=== PATIENT | male | born 1950 | race Caucasian/White ===

== ENCOUNTER 2017-12-14 19:23 | Inpatient (IN) | payer MEDICARE ==
[~2017-12-14] VITALS: Ht 182.9 cm; Wt 93.0 kg
[2017-12-14] MEDS ORDERED: SODIUM CHLORIDE FLUSH 10ML SYR IVF ONE (19:30)
[2017-12-14] MEDS ORDERED: OMNIPAQUE 350 MG/ML, 100ML BOTTLE ONE (20:31)
[2017-12-14] MEDS ORDERED: MORPHINE SULFATE 4 MG/ML, 1ML ONE (20:44)
[2017-12-14] MEDS ORDERED: ONDANSETRON ODT 4 MG ONE (20:44)
[2017-12-14] MEDS: MORPHINE SULFATE 4 MG/ML, 1ML IVPush PRN ×2 (20:49→22:13)
[2017-12-14] MEDS ORDERED: FLUO20TA25 PO (20:54)
[2017-12-14] MEDS ORDERED: MEMA1CAP3 PO (20:54)
[2017-12-14] MEDS ORDERED: METO25TA35 PO (20:54)
[2017-12-14] MEDS ORDERED: LISI-167 PO (20:54)
[2017-12-14 20:55] LABS: BASOPHILS # (AUTO) 0.01 x10^3/uL (0-0.1); BASOPHILS % (AUTO) 0 % (0-1); EOSINOPHILS # (AUTO) 0.01 x10^3/uL (0-0.4); EOSINOPHILS % (AUTO) 0 % (1-7); LYMPHOCYTES # (AUTO) 0.73 x10^3/uL (1-3.4); LYMPHOCYTES % (AUTO) 5 % (22-44); MD NO; MEAN CORPUSCULAR HEMOGLOBIN 33.7 pg (27.5-34.5); MEAN CORPUSCULAR HGB CONC 33.5 g/dL (33.2-36.2); MEAN CORPUSCULAR VOLUME 100.4 fL (81-97); MEAN PLATELET VOLUME 7.3 fL (7.4-10.4); MONOCYTES # (AUTO) 0.53 x10^3/uL (0.2-0.8); MONOCYTES % (AUTO) 4 % (2-9); NEUTROPHILS # (AUTO) 12.22 x10^3/uL (1.8-6.8); NEUTROPHILS % (AUTO) 91 % (42-75); PLATELET COUNT 347 x10^3/uL (130-400); RED BLOOD COUNT 4.31 x10^6/uL (4.38-5.82); RED CELL DISTRIBUTION WIDTH 14.4 % (9.4-14.8)
[2017-12-14 21:00] LABS: INTERNATIONAL NORMALIZED RATIO 1.08 (0.93-1.1); PROTHROMBIN TIME 11.2 Seconds (9.6-11.5)
[2017-12-14] MEDS ORDERED: ONDANSETRON ODT 4 MG PO ONE (21:00)
[2017-12-14 21:03] LABS: ALBUMIN 3.4 g/dL (3.4-5.0); ANION GAP 15 mmol/L (5-15); CALCIUM 8.6 mg/dL (8.5-10.1); CHLORIDE 101 mmol/L (98-107); CREATININE 0.96 mg/dL (0.7-1.3)
[2017-12-14] MEDS ORDERED: LISINOPRIL 10 MG TABLET PO ONE (21:30)
[2017-12-14] MEDS ORDERED: LISINOPRIL 10 MG TABLET ONE (21:36)
[2017-12-14] MEDS ORDERED: DOCUSATE 100 MG CAPSULE PO PRN (22:00)
[2017-12-14] MEDS ORDERED: POLYETHYLENE GLYCOL 17 GM PACKET PO PRN (22:00)
[2017-12-14] MEDS ORDERED: ACETAMINOPHEN 325 MG TABLET PO PRN (22:00)
[2017-12-14] MEDS ORDERED: hydrALAzine 20 MG/ML, 1ML IVPush PRN (22:00)
[2017-12-14] MEDS ORDERED: ONDANSETRON ODT 4 MG PO PRN (22:00)
[2017-12-14] MEDS: LISINOPRIL 10 MG TABLET PO SCH (22:30)
[2017-12-14] MEDS: SODIUM CHLORIDE 0.9% 1,000 ML IV SCH (22:42)
[2017-12-14] MEDS: HEPARIN 5,000 UNITS/ML, 1ML SQ SCH (22:42)
[2017-12-15 03:28] VITALS: BP 155/108
[2017-12-15 03:52] LABS: MICROSCOPIC NOT IND
[2017-12-15 03:57] LABS: CULTURE INDICATED? NO
[2017-12-15] MEDS: morphine SULFATE 10 MG/ML, 1ML IVPush PRN ×4 (04:35→23:53)
[2017-12-15 04:38] VITALS: BP 181/107
[2017-12-15 04:54] VITALS: BP 156/86
[2017-12-15] MEDS: HEPARIN 5,000 UNITS/ML, 1ML SQ SCH ×2 (06:00→13:58)
[2017-12-15 07:12] VITALS: BP 138/72
[2017-12-15] MEDS: LISINOPRIL 10 MG TABLET PO SCH ×2 (09:48→21:19)
[2017-12-15] MEDS: METOPROLOL TARTRATE 25 MG TABLET PO SCH (09:48)
[2017-12-15] MEDS: SODIUM CHLORIDE 0.9% 1,000 ML IV SCH ×2 (09:50→23:21)
[2017-12-15] MEDS ORDERED: MIDAZOLAM 1 MG/ML, 2ML ONE (11:40)
[2017-12-15] MEDS ORDERED: PROPOFOL 10 MG/ML, 20ML ONE (11:41)
[2017-12-15] MEDS ORDERED: FENTANYL PF 250 MCG/5ML ONE (11:41)
[2017-12-15] MEDS ORDERED: ROCURONIUM 10MG/ML,5ML ONE (11:42)
[2017-12-15] MEDS ORDERED: WATER-INJECTION,STERILE 10 ML IV ONE (11:42)
[2017-12-15] MEDS ORDERED: CEFAZOLIN 1,000 MG ONE ×2 (11:42)
[2017-12-15] MEDS ORDERED: NEOSTIGMINE 1 MG/ML, 10ML ONE (11:43)
[2017-12-15] MEDS ORDERED: GLYCOPYRROLATE 0.4 MG/2 ML, 2ML ONE (11:43)
[2017-12-15] MEDS ORDERED: HYDROmorphone 1 MG/ML, 1ML IV PRN (12:30)
[2017-12-15] MEDS ORDERED: ONDANSETRON ODT 8 MG PO PRN (12:30)
[2017-12-15] MEDS ORDERED: hydrALAzine 20 MG/ML, 1ML IV PRN (12:30)
[2017-12-15] MEDS ORDERED: PROMETHAZINE 12.5 MG SUPP PR PRN (12:30)
[2017-12-15] MEDS ORDERED: MORPHINE SULFATE 4 MG/ML, 1ML IVPush PRN (12:30)
[2017-12-15] MEDS ORDERED: OXYcodone 5 MG/5 ML ORAL.SOL UDC PO PRN (12:30)
[2017-12-15] MEDS ORDERED: MEPERIDINE/PF 25MG/0.5ML IVPush PRN (12:30)
[2017-12-15] MEDS ORDERED: PROMETHAZINE 25 MG/ML, 1ML IV PRN (12:30)
[2017-12-15] MEDS ORDERED: ACETAMINOPHEN 325 MG TABLET PO PRN (12:30)
[2017-12-15] MEDS ORDERED: PROMETHAZINE 25 MG SUPP PR PRN (12:30)
[2017-12-15] MEDS ORDERED: FENTANYL PF 100 MCG/2ML IV PRN (12:30)
[2017-12-15] MEDS ORDERED: LABETALOL 5MG/ML, 20ML IV PRN (12:30)
[2017-12-15] MEDS ORDERED: MEPERIDINE/PF 25MG/0.5ML ONE (14:26)
[2017-12-15] MEDS ORDERED: OXYcodone 5 MG/5 ML ORAL.SOL UDC ONE (14:39)
[2017-12-15] MEDS ORDERED: ACETAMINOPHEN 650 MG/20.3 ML UDC ONE (14:39)
[2017-12-15] MEDS ORDERED: LABETALOL 5MG/ML, 20ML ONE (14:45)
[2017-12-15] MEDS: CEFAZOLIN PMX 2GM/50ML 50 ML IVPB SCH ×2 (16:15→23:53)
[2017-12-15] MEDS: ENOXAPARIN 40 MG/0.4 ML SQ SCH (16:15)
[2017-12-15 19:24] VITALS: BP 110/62
[2017-12-16 00:05] VITALS: BP 141/90
[2017-12-16 04:14] VITALS: BP 119/69
[2017-12-16 05:26] LABS: BASOPHILS # (AUTO) 0.02 x10^3/uL (0-0.1); BASOPHILS % (AUTO) 0 % (0-1); EOSINOPHILS # (AUTO) 0.05 x10^3/uL (0-0.4); EOSINOPHILS % (AUTO) 1 % (1-7); LYMPHOCYTES # (AUTO) 0.79 x10^3/uL (1-3.4); LYMPHOCYTES % (AUTO) 11 % (22-44); MD NO; MEAN CORPUSCULAR HEMOGLOBIN 32.7 pg (27.5-34.5); MEAN CORPUSCULAR HGB CONC 32.4 g/dL (33.2-36.2); MEAN CORPUSCULAR VOLUME 101.2 fL (81-97); MEAN PLATELET VOLUME 7.5 fL (7.4-10.4); MONOCYTES # (AUTO) 0.74 x10^3/uL (0.2-0.8); MONOCYTES % (AUTO) 11 % (2-9); NEUTROPHILS % (AUTO) 77 % (42-75); PLATELET COUNT 274 x10^3/uL (130-400); RED BLOOD COUNT 3.41 x10^6/uL (4.38-5.82); RED CELL DISTRIBUTION WIDTH 14.9 % (9.4-14.8)
[2017-12-16 05:41] LABS: ALBUMIN 2.5 g/dL (3.4-5.0); ANION GAP 8 mmol/L (5-15); CALCIUM 8.2 mg/dL (8.5-10.1); CHLORIDE 101 mmol/L (98-107)
[2017-12-16 06:09] LABS: ALANINE AMINOTRANSFERASE 18 U/L (12-78); ALKALINE PHOSPHATASE 40 U/L (45-117); BILIRUBIN,TOTAL 0.5 mg/dL (0.2-1.0); CREATININE 0.81 mg/dL (0.7-1.3); FOLATE LEVEL 8.9 ng/mL (3.1-17.5); TOTAL PROTEIN 6.3 g/dL (6.4-8.2)
[2017-12-16 07:53] VITALS: BP 115/65
[2017-12-16] MEDS: LISINOPRIL 10 MG TABLET PO SCH ×2 (08:14→21:09)
[2017-12-16] MEDS: METOPROLOL TARTRATE 25 MG TABLET PO SCH (08:14)
[2017-12-16] MEDS: morphine SULFATE 10 MG/ML, 1ML IVPush PRN (08:15)
[2017-12-16] MEDS: SODIUM CHLORIDE 0.9% 1,000 ML IV SCH (12:49)
[2017-12-16 13:01] VITALS: BP 114/64
[2017-12-16] MEDS: ENOXAPARIN 40 MG/0.4 ML SQ SCH (16:18)
[2017-12-16 20:25] VITALS: BP 135/75
[2017-12-17] MEDS: SODIUM CHLORIDE 0.9% 1,000 ML IV SCH (01:45)
[2017-12-17 03:03] VITALS: BP 149/78
[2017-12-17 08:18] VITALS: BP 154/99
[2017-12-17] MEDS ORDERED: POLYETHYLENE GLYCOL 17 GM PACKET PO PRN (08:30)
[2017-12-17] MEDS ORDERED: MAGNESIUM CITRATE 300ML ORAL SOL PO PRN (08:30)
[2017-12-17] MEDS ORDERED: GLYCERIN ADULT SUPP PR PRN (08:30)
[2017-12-17] MEDS: METOPROLOL TARTRATE 25 MG TABLET PO SCH (08:38)
[2017-12-17] MEDS: LISINOPRIL 10 MG TABLET PO SCH (08:38)
[2017-12-17] MEDS ORDERED: FLUOXETINE HCL 20 MG CAPSULE PO SCH (11:00)
[2017-12-17] MEDS ORDERED: NAMZARIC PO SCH (11:00)
[2017-12-17 12:32] VITALS: BP 100/50
[2017-12-17] MEDS ORDERED: IBUPROFEN 200 MG TABLET PO PRN (14:00)
[2017-12-17] MEDS ORDERED: OXYC5TAB3 PO (16:38)
[2017-12-17] MEDS ORDERED: TRAM50TA2 PO (16:39)
[2017-12-17] MEDS ORDERED: ENOX40SY4 SQ (16:40)
== END 2017-12-17 16:47 | DRG 481 ==
LOC: ED 21:34 → SUATTDRO 21:42 → EDIP 22:02 → 4NOR 22:18
PROVIDERS: ADMIT Hospitalist; ATTEND Hospitalist
PROC: 0QS706Z Reposition Left Upper Femur with Intramedullary Internal Fixation Device, Open Approach (ICD-10-PCS; principal; 2017-12-15 12:30)
DX: S72.142A Displaced intertrochanteric fracture of left femur, initial encounter for closed fracture (principal); R71.0 Precipitous drop in hematocrit; D72.829 Elevated white blood cell count, unspecified; D75.89 Other specified diseases of blood and blood-forming organs; I10 Essential (primary) hypertension; W01.0XXA Fall on same level from slipping, tripping and stumbling without subsequent striking against object, initial encounter; Y92.009 Unspecified place in unspecified non-institutional (private) residence as the place of occurrence of the external cause; Z85.118 Personal history of other malignant neoplasm of bronchus and lung; Z85.841 Personal history of malignant neoplasm of brain; Z72.89 Other problems related to lifestyle; Y93.89 Activity, other specified; Y99.8 Other external cause status
CPT/HCPCS: 36415; 76000; 80048; 80053; 81003; 82040; 82607; 82746; 83735; 85025; 85610; 85730; 93005; 99285; C1713; J0690; J1644; J1650; J2175; J2250; J2704; J2710; J3010; Q0162; Q9967; J0360; J2270; J7030

== ENCOUNTER 2018-02-18 13:59 | Emergency (ER) | payer MEDICARE ==
[~2018-02-18] VITALS: Ht 182.9 cm; Wt 90.0 kg
[~2018-02-18 13:59] MED LIST: AZIT500T PO; CEFD300C37 PO; ENOX40SY4 SQ; FLUO20TA25 PO; LISI-167 PO; LISI-170 PO; MEMA1CAP3 PO; METO25TA35 PO; OXYC5TAB3 PO; TRAM50TA2 PO
[2018-02-18] MEDS ORDERED: SODIUM CHLORIDE 0.9% 1,000ML IVBOLUS ONE (14:30)
[2018-02-18 14:52] LABS: BASOPHILS % (AUTO) 0 % (0-1); EOSINOPHILS # (AUTO) 0.16 x10^3/uL (0-0.4); EOSINOPHILS % (AUTO) 3 % (1-7); LYMPHOCYTES # (AUTO) 0.98 x10^3/uL (1-3.4); LYMPHOCYTES % (AUTO) 15 % (22-44); MD NO; MEAN CORPUSCULAR HEMOGLOBIN 32.5 pg (27.5-34.5); MEAN CORPUSCULAR HGB CONC 33.2 g/dL (33.2-36.2); MEAN CORPUSCULAR VOLUME 97.8 fL (81-97); MEAN PLATELET VOLUME 7.3 fL (7.4-10.4); MONOCYTES # (AUTO) 0.69 x10^3/uL (0.2-0.8); MONOCYTES % (AUTO) 11 % (2-9); NEUTROPHILS # (AUTO) 4.64 x10^3/uL (1.8-6.8); NEUTROPHILS % (AUTO) 72 % (42-75); PLATELET COUNT 465 x10^3/uL (130-400); RED BLOOD COUNT 3.96 x10^6/uL (4.38-5.82); RED CELL DISTRIBUTION WIDTH 14.8 % (9.4-14.8)
[2018-02-18 14:57] LABS: ALANINE AMINOTRANSFERASE 21 U/L (12-78); ALBUMIN 3.2 g/dL (3.4-5.0); ANION GAP 6 mmol/L (5-15); CALCIUM 8.8 mg/dL (8.5-10.1); CHLORIDE 100 mmol/L (98-107)
[2018-02-18 15:01] LABS: ALKALINE PHOSPHATASE 69 U/L (45-117); BILIRUBIN,TOTAL 0.3 mg/dL (0.2-1.0); TOTAL PROTEIN 8.1 g/dL (6.4-8.2)
[2018-02-18 15:03] LABS: TROPONIN I < 0.015 ng/mL (0.000-0.045)
[2018-02-18] MEDS ORDERED: OMNIPAQUE 350 MG/ML, 100ML BOTTLE ONE (16:11)
[2018-02-18 16:41] VITALS: BP 147/93
== END 2018-02-18 17:58 | disposition home or self-care (01) ==
LOC: MERGE 13:59 → ED 17:52
DX: J90 Pleural effusion, not elsewhere classified (principal); J98.11 Atelectasis; Z87.891 Personal history of nicotine dependence
CPT/HCPCS: 36415; 71046; 71275; 80053; 83605; 83880; 84145; 84484; 85025; 87040; 93005; 99285; Q9967

== ENCOUNTER → 2018-03-05 | Outpatient (CLI) | payer MEDICARE ==
[~2018-03-05] MED LIST changes: +REGADENOSON 0.4 MG/5 ML SYRINGE ONE
== END | disposition home or self-care (01) ==
LOC: CFH 13:50
PROVIDERS: ATTEND Internal Medicine Cardiovascular Disease
DX: Z13.6 Encounter for screening for cardiovascular disorders (principal); I51.7 Cardiomegaly; I10 Essential (primary) hypertension; Z87.891 Personal history of nicotine dependence
CPT/HCPCS: 0399T; 93306; J2785

== ENCOUNTER → 2018-03-06 | Outpatient (CLI) | payer MEDICARE ==
[~2018-03-06] MED LIST changes: -REGADENOSON 0.4 MG/5 ML SYRINGE ONE
== END | disposition home or self-care (01) ==
LOC: CFH 08:20
PROVIDERS: ATTEND Internal Medicine Cardiovascular Disease
DX: Z13.6 Encounter for screening for cardiovascular disorders (principal)
CPT/HCPCS: 78452; 93017; A9502

== ENCOUNTER → 2018-03-19 | Outpatient (CLI) | payer MEDICARE, OTHER | END | disposition home or self-care (01) | LOC: CARD 08:51 | PROVIDERS: ATTEND Registered Nurse | DX: R94.01 Abnormal electroencephalogram [EEG] (principal); R41.3 Other amnesia | CPT/HCPCS: 95819 ==

== ENCOUNTER 2018-08-06 13:07 | Emergency (ER) | payer MEDICARE ==
[~2018-08-06] VITALS: Ht 182.9 cm; Wt 97.4 kg
[2018-08-06 13:28] VITALS: BP 136/84
--- NOTE | 2018-08-06 13:33 | NUR ---
PT RESTING IN POSITION OF COMFORT IN [facility]. FALL PRECAUTIONS IN PLACE. VSS. PT HAS CONTINUOUS SPO2 AND CARDIAC MONITORING IN PLACE. CALL LIGHT W/IN REACH. PT INSTRUCTED ON USE, VERBALIZED UNDERSTANDING. AT BEDSIDE.
--- NOTE | 2018-08-06 13:47 | NUR ---
REPORT TO OSEAS HOWELL
[2018-08-06] MEDS ORDERED: SODIUM CHLORIDE FLUSH 10ML SYR IVF ONE (14:00)
[2018-08-06 14:19] LABS: BASOPHILS # (AUTO) 0.03 x10^3/uL (0-0.1); BASOPHILS % (AUTO) 0 % (0-1); EOSINOPHILS # (AUTO) 0.07 x10^3/uL (0-0.4); EOSINOPHILS % (AUTO) 1 % (1-7); LYMPHOCYTES # (AUTO) 0.98 x10^3/uL (1-3.4); LYMPHOCYTES % (AUTO) 17 % (22-44); MD NO; MEAN CORPUSCULAR HEMOGLOBIN 31.1 pg (27.5-34.5); MEAN CORPUSCULAR HGB CONC 32.9 g/dL (33.2-36.2); MEAN CORPUSCULAR VOLUME 94.5 fL (81-97); MEAN PLATELET VOLUME 7.7 fL (7.4-10.4); MONOCYTES # (AUTO) 0.65 x10^3/uL (0.2-0.8); MONOCYTES % (AUTO) 11 % (2-9); NEUTROPHILS # (AUTO) 4.15 x10^3/uL (1.8-6.8); NEUTROPHILS % (AUTO) 71 % (42-75); PLATELET COUNT 365 x10^3/uL (130-400); RED BLOOD COUNT 4.15 x10^6/uL (4.38-5.82); RED CELL DISTRIBUTION WIDTH 16.3 % (9.4-14.8)
[2018-08-06 14:30] LABS: ALANINE AMINOTRANSFERASE 19 U/L (12-78); ALBUMIN 3.3 g/dL (3.4-5.0); ANION GAP 8 mmol/L (5-15); CALCIUM 8.7 mg/dL (8.5-10.1); CHLORIDE 104 mmol/L (98-107); CREATININE 0.85 mg/dL (0.7-1.3)
[2018-08-06 14:34] LABS: ALKALINE PHOSPHATASE 54 U/L (45-117); BILIRUBIN,TOTAL 0.3 mg/dL (0.2-1.0); TOTAL PROTEIN 7.6 g/dL (6.4-8.2); TROPONIN I < 0.015 ng/mL (0.000-0.045)
[2018-08-06] MEDS ORDERED: OMNIPAQUE 350 MG/ML, 75ML BOTTLE ONE (15:00)
--- NOTE | 2018-08-06 15:14 | NUR ---
PT TO CT
== END 2018-08-06 16:40 | disposition home or self-care (01) ==
LOC: ED 14:07
DX: R06.00 Dyspnea, unspecified (principal); I10 Essential (primary) hypertension; Z87.891 Personal history of nicotine dependence; Z85.841 Personal history of malignant neoplasm of brain
CPT/HCPCS: 36415; 71260; 80053; 83605; 83880; 84484; 85025; 87040; 93005; 99284; Q9967

== ENCOUNTER → 2018-12-16 | Outpatient (CLI) | payer MEDICARE | END | disposition home or self-care (01) | LOC: CFH 10:59 | PROVIDERS: ATTEND Nurse Practitioner | DX: J90 Pleural effusion, not elsewhere classified (principal) | CPT/HCPCS: 71250 ==

== ENCOUNTER 2020-04-28 08:11 | Outpatient (CLI) | payer MEDICARE | END 2020-04-28 23:59 | disposition home or self-care (01) | LOC: CFH 08:11 | PROVIDERS: ATTEND Registered Nurse | DX: S06.0X9S Concussion with loss of consciousness of unspecified duration, sequela (principal); G31.89 Other specified degenerative diseases of nervous system; X58.XXXS Exposure to other specified factors, sequela | CPT/HCPCS: 70450 ==